=== PATIENT | male | born 1965 | race Caucasian/White ===

== ENCOUNTER 2024-05-08 06:49 | Observation (INO) | payer OTHER ==
[2024-05-08] MEDS ORDERED: DECADRON 10MG INJ. IV ONE (06:54)
[2024-05-08] MEDS ORDERED: Decadron 4 MG ONE (07:16)
[2024-05-08] MEDS ORDERED: TRANEXAMIC 1,000 MG/100ML-NACL 1,000 MG/100 ML PIGGYBACK IV ONE ×2 (07:16→11:16)
[2024-05-08] MEDS ORDERED: NEURONTIN ONE (07:17)
[2024-05-08] MEDS ORDERED: Lactated Ringers 1,000 ML IV ONE ×2 (07:17→08:41)
[2024-05-08] MEDS ORDERED: celeBREX 100 MG ONE (07:17)
[2024-05-08] MEDS: NEURONTIN PO ONE (07:20)
[2024-05-08] MEDS: Decadron 4 MG PO ONE (07:21)
[2024-05-08] MEDS: TRANEXAMIC 1,000 MG/100ML-NACL 1,000 MG/100 ML PIGGYBACK IV ONE (07:22)
[2024-05-08] MEDS: CEFAZOLIN 2 GM/100 ML NaCl 2 GM/100 ML IVPB IV SCH ×2 (07:22→14:52)
[2024-05-08] MEDS: Lactated Ringers 1,000 ML IV SCH (07:22)
[2024-05-08] MEDS: celeBREX 100 MG PO ONE (07:23)
[2024-05-08 08:28] LABS: Hematocrit 42.9 % (40.1-51.0); Mean Cell Volume 91.1 fL (79.0-92.2); Mean Corpuscular Hemoglobin 29.7 pg (25.7-32.2); Mean Corpuscular Hgb Concent. 32.6 g/dL (32.3-36.5); Mean Platelet Volume 11.9 fL (9.4-12.4); Platelet Count 291 x10^3/uL (163-337); Red Blood Count 4.71 x10^6/uL (4.63-6.08); Red Cell Distribution Width 13.2 % (11.6-14.4)
[2024-05-08] MEDS ORDERED: EXPAREL 133 MG/10 ML VIAL IJ ONE (09:03)
[2024-05-08] MEDS ORDERED: DIPRIVAN 200 MG/20 ML IV ONE (09:04)
[2024-05-08] MEDS ORDERED: Marcaine 0.5%/Epinephrine 10 ML ONE (09:07)
[2024-05-08] MEDS ORDERED: Versed 2 MG/2 ML Injection ONE (09:16)
[2024-05-08] MEDS ORDERED: Decadron 4 MG INJ ONE (09:16)
[2024-05-08] MEDS ORDERED: Zofran 4 MG/2 ML VIAL ONE (09:16)
--- NOTE | 2024-05-08 12:15 | XRAY ---
Indication: Follow-up surgery. Comparison: February 13, 2024 AP/crosstable lateral right knee demonstrates new medial hemiarthroplasty with intact prosthesis. Postoperative soft tissue swelling, effusion, and soft tissue emphysema. No other bony, articular, or soft tissue abnormalities.
[2024-05-08] MEDS: ECOTRIN 81 MG PO SCH (14:05)
[2024-05-08] MEDS: Zestril 20 MG PO SCH (14:05)
[2024-05-08] MEDS: ZOCOR 20MG PO SCH ×2 (14:26→22:20)
[2024-05-08] MEDS: Tricor 145 MG PO SCH ×2 (14:26→22:19)
[2024-05-08] MEDS ORDERED: NORCO 10-325 MG PO PRN (14:39)
[2024-05-08] MEDS ORDERED: Zofran 4 MG/2 ML VIAL IV PRN (14:39)
[2024-05-08] MEDS ORDERED: TYLENOL 325 MG PO PRN (14:39)
[2024-05-08] MEDS ORDERED: Hydromorphone 1 mg/ml Injection IV PRN (14:39)
[2024-05-08] MEDS: NORCO 7.5/325 MG TAB PO PRN (14:57)
[2024-05-08] MEDS: ECOTRIN 81 MG PO ONE (15:27)
[2024-05-08] MEDS: Sodium Chloride 0.9% 1000 ML 1,000 ML IV SCH (18:15)
[2024-05-08] MEDS: Coreg 3.125 MG PO SCH (22:19)
[2024-05-09 04:52] LABS: Hematocrit 36.6 % (40.1-51.0); Hemoglobin 11.7 g/dL (13.7-17.5); Mean Cell Volume 92.2 fL (79.0-92.2); Mean Corpuscular Hemoglobin 29.5 pg (25.7-32.2); Mean Platelet Volume 11.8 fL (9.4-12.4); Platelet Count 247 x10^3/uL (163-337); Red Blood Count 3.97 x10^6/uL (4.63-6.08); Red Cell Distribution Width 13.3 % (11.6-14.4); White Blood Count 21.8 x10^3/uL (4.23-9.07)
[2024-05-09 07:55] VITALS: BP 107/70; PULSE 76; RESP 17; TEMP 98; O2SAT 94
[2024-05-09] MEDS: Ecotrin 325 MG PO SCH (09:26)
[2024-05-09] MEDS: VITAMIN D PO SCH (09:26)
--- NOTE | 2024-05-10 10:48 | OP ---
SURGERY DATE/TIME: 05/08/2024 [id number] PREOPERATIVE DIAGNOSIS: Osteoarthritis right knee. POSTOPERATIVE DIAGNOSIS: Osteoarthritis right knee. PROCEDURE: Right [place] kedar-replacement arthroplasty knee. SURGEON: Adama Samuel II, DO ANESTHESIA: Spinal with block for postop pain control. DESCRIPTION OF PROCEDURE AND FINDINGS: The patient was identified and informed consent was obtained. The patient was taken to the operative suite and placed into the supine position on the operating table where the spinal anesthetic was administered. Once an appropriate level of anesthesia had been obtained, the patient was given a nerve block for postop pain control. At this point then, the tourniquet was placed high on the right thigh. The right lower extremity was prepped and draped in the usual sterile fashion and placed into the [place] knee nichole. A standard time-out was taken. The leg was then exsanguinated and the tourniquet elevated to 350 mmHg. At this point, a midline incision was accomplished from the superior pole of patella to the level of tibial tubercle. Skin was incised and dissection was carried out through the subcutaneous tissue. Utilizing a fresh #10 blade, a standard medial parapatellar incision was accomplished; and upon entering the joint, grade 1 synovial fluid was encountered. The patient was noted to have an intact ACL and he was noted to have very minimal degenerative changes in the lateral compartment. Thus, he was deemed to be a good candidate for a kedar-replacement arthroplasty. A portion of the medial meniscus and infrapatellar fat pad was removed for visualization; and at this point, the signature series guides were then utilized. The femoral guide was used first. Drill holes were made followed by creation of the posterior cut with the captured cutting block. Following this, the 0 spigot was used and the distal femur was milled with a milling device. At this point then, our attention was turned to the tibial side where the tibial guide was applied and held with the appropriate pins. The vertical cut was made with a reciprocating saw. The oscillating saw with a 10 blade was utilized to resect the proximal tibia. The wafer of bone was removed; and at this point then, any remaining portion of meniscus was excised. Trial showed that the D trial would be the appropriate size for good coverage on the tibia. The femoral component was applied and the #1 spigot could be placed with the knee in extension. The #5 paddle could be placed with the knee in flexion and #1 paddle with the knee in extension. Thus, a #4 spigot was utilized to resect 4 more millimeters of distal femur. At this point then, trial reduction showed that the 5 mm paddle provided excellent soft tissue balance with the knee in flexion as well as extension. At this point, any collars of bone were removed. The drills holes were made in the femur for interdigitation of the cement. The tibial trial was held in place with the nail and the toothbrush-type cutting saw blade was utilized to cut the groove for the keel. The specialized curette was utilized to clean out the groove and the knee was then copiously irrigated. Trial reduction with the keel component showed again with utilizing the dish trial that the 5 mm poly was indeed the appropriate size. Trial instrumentation was removed and the joint was copiously irrigated with the pulse entry level business analyst. The cement was vacuum mixed. The knee was dried and the cement was then pressed into the interstices of bone with a curved osteotome on the tibia and the component was then impacted into position with the impaction device. Femoral component was then cemented into position as well and all excess cement was removed. The 5 mm paddle was then placed and the knee was held at 45 degrees of flexion until the cement had fully cured. Following this, again trial reduction showed the 5 mm poly to be the appropriate size. The knee was irrigated and a 5 mm poly was inserted with digital pressure from the needle loom operator's hand. At this point then, the knee was irrigated and closed with #2 Stratafix, 2-0 Monocryl, and 3-0 Stratafix subcutaneous augmented with Dermabond. An Aquacel dressing was applied. The patient was transferred to the cart and taken to the recovery room in satisfactory condition, having tolerated the procedure well.
== END 2024-05-09 11:14 | disposition home or self-care (01) ==
LOC: SDC 06:49 → MED SURG 07:59
PROVIDERS: ADMIT Orthopaedic Surgery; ATTEND Orthopaedic Surgery
DX: M17.11 Unilateral primary osteoarthritis, right knee (principal); M25.561 Pain in right knee
CPT/HCPCS: 27446; 36415; 73560; 76937; 85027; C1713; C1776; G0378; J0690; J1100; J2250; J2405; J2704; A9270-GY

== ENCOUNTER 2025-05-23 05:42 | Day surgery (SDC) | payer OTHER ==
[2025-05-23] MEDS: NEURONTIN PO ONE (06:09)
[2025-05-23] MEDS: TYLENOL EXTRA STRENGTH 500 MG PO ONE (06:09)
[2025-05-23] MEDS: celeBREX 100 MG PO ONE (06:09)
[2025-05-23] MEDS: Decadron 4 MG PO ONE (06:10)
[2025-05-23] MEDS: Lactated Ringers 1,000 ML IV SCH (06:22)
[2025-05-23] MEDS ORDERED: CEFAZOLIN SODIUM ONE (06:25)
[2025-05-23] MEDS: TRANEXAMIC 1,000 MG/100ML-NACL 1,000 MG/100 ML PIGGYBACK IV ONE (06:28)
[2025-05-23] MEDS ORDERED: VANCOCIN INJECTION IV ONE (06:29)
[2025-05-23] MEDS ORDERED: MARCAINE 0.25% PF/ EPI 1:200,000 ONE (07:42)
[2025-05-23] MEDS ORDERED: Marcaine 0.5%/Epinephrine 10 ML ONE (07:45)
[2025-05-23] MEDS ORDERED: SUBLIMAZE 100 MCG/2 ML ONE (07:47)
[2025-05-23] MEDS ORDERED: Versed 2 MG/2 ML Injection ONE (07:47)
[2025-05-23] MEDS ORDERED: Xylocaine-Mpf 2% 5 Ml Vial ONE (07:48)
[2025-05-23] MEDS ORDERED: Astramorph-Pf 5 MG/10 ML ONE (08:30)
[2025-05-23] MEDS ORDERED: propofoL IV ONE ×4 (08:32→10:10)
[2025-05-23] MEDS ORDERED: PHENYLEPHRINE HCL ONE (08:49)
--- NOTE | 2025-05-23 11:13 | XRAY ---
Indication: Postop exam. Comparison: January 27, 2025 2 view left knee demonstrates interval medial hemiarthroplasty with intact prosthesis and postoperative soft tissue swelling/emphysema and effusion. There remains minimal vascular calcifications. No other abnormalities.
[2025-05-23] MEDS ORDERED: Zofran 4 MG/2 ML VIAL IV PRN ×2 (12:27→12:30)
[2025-05-23] MEDS ORDERED: Narcan 0.4 MG/ML IV PRN (12:30)
[2025-05-23] MEDS ORDERED: Sodium Chloride 0.9% 10 ML FLUSH Syringe IJ PRN (12:30)
[2025-05-23] MEDS ORDERED: BENADRYL 50 MG/ML IV PRN (12:30)
[2025-05-23] MEDS ORDERED: DEMEROL 50 MG IV PRN (12:30)
[2025-05-23] MEDS ORDERED: Nubain 10 MG/ML IV PRN (12:30)
[2025-05-23] MEDS ORDERED: CLARITIN 10 MG PO PRN (12:30)
[2025-05-23] MEDS ORDERED: MORPHINE SULFATE 2 MG INJ IV PRN (12:30)
--- NOTE | 2025-05-23 15:02 | OP ---
SURGERY DATE/TIME: 05/23/2025 [id number] PREOPERATIVE DIAGNOSIS: Osteoarthritis, left knee. POSTOPERATIVE DIAGNOSIS: Osteoarthritis, left knee. PROCEDURE: [place] kedar-replacement arthroplasty of left knee utilizing the [employer] instrumentation, a size large femoral component, a size E tibial component, and a 3 mm polyethylene bearing tray. SURGEON: Adama Samuel II, DO ANESTHESIA: Spinal with a block for postop pain control. DESCRIPTION OF PROCEDURE AND FINDINGS: The patient was identified, and informed consent was obtained. The spinal anesthetic was administered as was the block. Once an appropriate level of anesthesia had been obtained, a tourniquet was placed high on the left thigh. The left lower extremity was then prepped and draped in the usual sterile fashion. A standard time-out was taken. The leg was then placed into the [place] knee nichole after the leg had been exsanguinated with the tourniquet elevated to 350 mmHg. Once the knee had been placed in the knee nichole, a standard midline incision was accomplished. Skin was incised. Dissection was carried out through subcutaneous tissue and a standard medial parapatellar incision was accomplished from about a half an inch to an inch along the quad, down on the medial side. The knee was then visualized. The lateral compartment was noted to be intact and had very minimal degenerative changes. There was some very mild chondromalacia changes noted on the patella but it was essentially normal appearing in nature. The medial compartment had complete loss of the articular cartilage on both the tibial and the femoral weightbearing surfaces with hard, eburnated bone. The anterior cruciate ligament was inspected and noted to be intact. The lateral joint was inspected and the lateral meniscus appeared intact. At this point, it was deemed the patient was a good candidate for a kedar-replacement arthroplasty. A portion of the infrapatellar fat pad was excised for visualization. The medial meniscus was excised. At this point, the Z retractor was positioned and the femoral aiming guide was then placed and drill holes were accomplished. Following this, the posterior capture cutting block was then applied and the posterior cut was then made. After this, the 0 spigot was applied and the milling of the distal femur was accomplished. Following this, our attention was then turned to the tibial side where the tibial-aiming guide was placed and held with its pins. The reciprocating saw was utilized to create the vertical cut and then the proximal tibial cutting block was applied. The proximal wafer of tibia was removed. The trial tibial component was inserted and it was deemed that the 3 spigot fit nicely with the knee in flexion. We were unable to get the 1 spigot in with the knee in extension. Thus, the #3 spigot was applied and 2 more millimeters of distal femur were resected with the appropriate guide. A collar of bone was removed and any other remaining collars of bone were removed at this time as were osteophytes. The drill guide with the anterior milling device was then applied and the anterior milling was then accomplished. Any remaining osteophytes were removed from the femur. Trial reduction at this point deemed that the 3 mm paddle fit very nicely. The 4 mm paddle fit but it was very tight. Thus, the tibial trial was then placed into position and held with its nail and the keel cut was accomplished with the toothbrush-type reciprocating saw. At this point, the keel tibial component was inserted and impacted into position. At this point, trial reduction with the trial femoral component in place showed that the 3 mm lip component fit very nicely. The 4 mm component could not be placed. Following this, the trial instrumentation was removed. The drill holes were then created in the femur for interdigitation of the cement. The cement was vacuum mixed. Utilizing a curved 3/4 inch osteotome, cement was then placed into the keel. On the tibia, the tibial component also had cement applied and was impacted into position. The excess cement was removed and the thermal component was then cemented into position as well. The excess cement was removed. The knee was then held at 45 degrees of flexion with the #[address] The cement was allowed to fully cure. Once the cement had fully cured, the trial reduction with the lipped bearing showed that the 3 mm poly fit very well. The 4 mm poly could not be placed. At this point, the knee was copiously irrigated and 3 mm mobile bearing poly was then inserted into place with the tower dragline operator's finger. It required a fair amount of digital pressure. Excellent reduction was noted and good stability was noted throughout the entire arc of motion with no evidence of impingement. The wound was then irrigated and closed with #2 Stratafix, 2-0 Monocryl, and 3-0 subcuticular Stratafix augmented with Dermabond and Aquacel dressing. The patient was then transferred to the cart and taken to the recovery room in satisfactory condition, having tolerated the procedure well.
[2025-05-23] MEDS: ZOCOR 20MG PO SCH (21:01)
[2025-05-23] MEDS: Tricor 145 MG PO SCH (21:01)
[2025-05-23] MEDS: Coreg 3.125 MG PO SCH (21:01)
[2025-05-23] MEDS ORDERED: NON-FORMULARY ITEM (Rosuvastatin Calcium [Rosuvastatin Calcium] 20 MG Tablet) PO SCH (22:00)
[2025-05-24] MEDS: PERCOCET TABLET 5/325MG PO PRN (00:47)
[2025-05-24 03:47] VITALS: RESP 18
[2025-05-24 05:40] LABS: Hematocrit 34.9 % (40.1-51.0); Hemoglobin 11.2 g/dL (13.7-17.5); Mean Corpuscular Hemoglobin 29.2 pg (25.7-32.2); Mean Corpuscular Hgb Concent. 32.1 g/dL (32.3-36.5); Platelet Count 229 x10^3/uL (163-337); Red Blood Count 3.83 x10^6/uL (4.63-6.08); White Blood Count 24.3 x10^3/uL (4.23-9.07)
[2025-05-24 07:38] VITALS: TEMP 98.8; O2SAT 93
[2025-05-24] MEDS: Ecotrin 325 MG PO SCH (08:59)
[2025-05-24] MEDS: Zestril 20 MG PO SCH (08:59)
[2025-05-24 09:02] VITALS: BP 113/92; PULSE 75
[2025-05-24] MEDS ORDERED: Hydromorphone 1 mg/ml Injection IV PRN (10:00)
[2025-05-24] MEDS ORDERED: ULTRAM 50 MG PO PRN (10:00)
[2025-05-24] MEDS ORDERED: NORCO 7.5/325 MG TAB PO PRN (10:00)
[2025-05-24] MEDS ORDERED: HOLD NARCOTIC ANALGESICS AND SEDATIVES X24 HR MC SCH (10:00)
[2025-05-24] MEDS ORDERED: NORCO 10-325 MG PO PRN (10:00)
== END 2025-05-24 09:40 | disposition home or self-care (01) ==
LOC: SDC 05:42 → MED SURG 11:14 → SDC 05-24 09:40
PROVIDERS: ATTEND Orthopaedic Surgery
DX: M17.12 Unilateral primary osteoarthritis, left knee (principal)